=== PATIENT | female | born 1955 | race Caucasian/White ===

== ENCOUNTER → 2016-08-26 | Outpatient (CLI) | payer BC, OTHER ==
[~2016-08-26] VITALS: Ht 162.6 cm; Wt 87.0 kg
[~2016-08-26] MED LIST: AMIT10TA PO; DEXI60CA PO; ELAV25TA PO; LEVO88TA24 PO; LIDOCAINE 2% INJ 100 MG/5 ML SDV (FOR ANES.) As Ordered ONE; LISI10TA4 PO; NS 1,000 ML IV SCH; PROPOFOL 200 MG/20 ML VIAL As Ordered ONE; PROT1TAB2 PO; RANI150T PO; REST0.05 OP
--- NOTE | 2016-08-26 09:05 | ROOR ---
Patient Name: Mira Conner Procedure Date: 08/26/2016 8:43 AM Date of : 1955 Age: 61 Room: [facility] Gender: Female Note Status: Finalized Procedure: Upper GI endoscopy Indications: Heartburn, Failure to respond to medical treatment Providers: Alli NOVAK MD Referring MD: Cody Pierre MD Requesting Provider: Medicines: Monitored Anesthesia Care Complications: No immediate complications. Procedure: Pre-Anesthesia Assessment: - The heart rate, respiratory rate, oxygen saturations, blood pressure, adequacy of pulmonary ventilation, and response to care were monitored throughout the procedure. The Endoscope was introduced through the mouth, and advanced to the jejunum. The upper GI endoscopy was accomplished without difficulty. The patient tolerated the procedure well. Findings: The examined esophagus was normal. 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 The gastrojejunal anastomosis was characterized by healthy appearing mucosa. This was traversed. The exam of the stomach was otherwise normal. The examined jejunum was normal. Impression: - Normal esophagus. - Juliocesar-en-Y gastrojejunostomy with gastrojejunal anastomosis characterized by healthy appearing mucosa. - Normal examined jejunum. - No specimens collected. Recommendation: - Follow an antireflux regimen. - Return to my office as previously scheduled. Alli Novak MD Alli NOVAK MD 08/26/2016 9:05:21 AM This report has been signed electronically. Number of Addenda: 0 Note Initiated On: 08/26/2016 8:43 AM Estimated Blood Loss: Estimated blood loss: none.
[2016-08-26 09:25] VITALS: BP 172/92
== END | disposition home or self-care (01) ==
LOC: M OPP 07:46
PROVIDERS: ATTEND Internal Medicine Gastroenterology
DX: R12 Heartburn (principal); Z98.0 Intestinal bypass and anastomosis status; I10 Essential (primary) hypertension; G47.30 Sleep apnea, unspecified; E03.9 Hypothyroidism, unspecified; Z88.5 Allergy status to narcotic agent; Z88.8 Allergy status to other drugs, medicaments and biological substances; Z79.899 Other long term (current) drug therapy

== ENCOUNTER → 2017-03-02 | Outpatient (CLI) | payer BC, OTHER ==
[~2017-03-02] MED LIST changes: -DEXI60CA PO; +DEXI60CA2 PO; -LIDOCAINE 2% INJ 100 MG/5 ML SDV (FOR ANES.) As Ordered ONE; -NS 1,000 ML IV SCH; -PROPOFOL 200 MG/20 ML VIAL As Ordered ONE
[2017-03-02 10:28] LABS: ALBUMIN 3.6 GM/DL (3.2-5.2); ALKALINE PHOSPHATASE 103 U/L (45-117); ALT/SGPT 27 U/L (12-78); ANION GAP 7 MEQ/L (8-16); AST/SGOT 20 U/L (15-37); BILIRUBIN,TOTAL 0.6 MG/DL (0.2-1.0); BLOOD UREA NITROGEN 14 MG/DL (7-18); CALCIUM LEVEL 8.7 MG/DL (8.8-10.2); CARBON DIOXIDE LEVEL 28 MEQ/L (21-32); CHLORIDE LEVEL 107 MEQ/L (98-107); CREATININE FOR GFR 0.68 MG/DL (0.55-1.02); GLOMERULAR FILTRATION RATE > 60.0 (>45); GLUCOSE, FASTING 89 MG/DL (80-110); POTASSIUM SERUM 4.6 MEQ/L (3.5-5.1); SODIUM LEVEL 142 MEQ/L (136-145); TOTAL PROTEIN 6.6 GM/DL (6.4-8.2)
== END ==
LOC: M WUC 08:06
PROVIDERS: ATTEND Nurse Practitioner Family
DX: I10 Essential (primary) hypertension (principal); E03.9 Hypothyroidism, unspecified

== ENCOUNTER → 2017-04-12 | Outpatient (CLI) | payer BC, OTHER ==
--- NOTE | 2017-04-14 09:05 | DEXA ---
AP SPINE L1 - L4 1.051 -1.2 0.2 LT FEMUR TOTAL 0.815 -1.5 -0.5 RT FEMUR TOTAL 0.796 -1.7 -0.6 TOTAL BODY TOTAL OTHER DUAL FEMUR FRAX* ASSESSMENT Risk factors: Not performed. 10 year probability of fracture Major osteoporotic fracture % Hip fracture % COMMENTS: There is low bone density of the spine and hips. The density of the spine is increased 2.6% since 03/05/2014. The density of the left hip has increased 5.7% since 03/05/2014. The density of the right hip has increased 8.4% since 03/05/2014. FOLLOW-UP: Recommendation for the next bone density exam: 2 years. ADRIA
== END ==
LOC: M WHC 15:23
DX: M85.80 Other specified disorders of bone density and structure, unspecified site (principal)

== ENCOUNTER → 2017-05-26 | Outpatient (CLI) | payer BC, OTHER ==
[2017-05-26 15:38] LABS: FREE T4 1.26 NG/DL (0.76-1.46)
== END ==
LOC: M WUC 11:51
PROVIDERS: ATTEND Nurse Practitioner Family
DX: E61.1 Iron deficiency (principal); E03.9 Hypothyroidism, unspecified

== ENCOUNTER → 2017-06-23 | Outpatient (CLI) | payer BC, OTHER ==
--- NOTE | 2017-06-23 15:25 | REPMRS ---
Patient History The patient states she had a clinical breast exam in 01/2017. Patient is postmenopausal and had first child at age 33. Family history of prostate cancer in father at age 50 or over, breast cancer in mother at age 84, colorectal cancer in mother at age 90, breast cancer in maternal grandmother at age 50 or over, and prostate cancer in brother at age 50 or over. Taking unspecified hormones for 2 years. Digital Woman Screen Mammo: June 23, 2017 - Exam #: [id number] Bilateral CC and MLO view(s) were taken. Technologist: Aurelia Tuttle Technologist Prior study comparison: June 22, 2016, digital woman screen mammo performed at [facility]. May 20, 2015, digital woman screen mammo performed at [facility]. March 05, 2014, digital woman screen mammo performed at [facility]. FINDINGS: There are scattered fibroglandular densities. There has been no change in the appearance of the mammogram from the prior studies. There is a mild amount of scattered fibroglandular density which is fairly symmetric. There is no interval development of dominant mass, architectural distortion, or clustered microcalcification suggestive of malignancy. ASSESSMENT: BI-RADS/ACR category 1 mammogram. Negative. Recommendation Breast MRI of both breasts in 6 months. Routine screening mammogram in 1 year (for women over age 40). This patient's Lifetime Breast Cancer RIsk is estimated at 20.3 %. Annual screening Breast MRI scanniing is recommended for patient's whose lifetime risk assessment is over 20%. This mammogram was interpreted with the aid of an FDA-approved computer-aided dectection system. Electronically Signed By: Vitaly Marrero MD 06/23/17 [id number]
== END ==
LOC: M WHC 12:56
PROVIDERS: ATTEND Nurse Practitioner Adult Health
DX: Z12.31 Encounter for screening mammogram for malignant neoplasm of breast (principal); Z78.0 Asymptomatic menopausal state; Z80.0 Family history of malignant neoplasm of digestive organs; Z80.3 Family history of malignant neoplasm of breast; Z79.891 Long term (current) use of opiate analgesic

== ENCOUNTER → 2017-12-28 | Outpatient (CLI) | payer BC, OTHER ==
[~2017-12-28] MED LIST changes: -AMIT10TA PO; -DEXI60CA2 PO; -ELAV25TA PO; -LEVO88TA24 PO; -LISI10TA4 PO; +PROHANCE 279.3MG/ML 15ML VIAL (A9576) As Ordered; +PROHANCE 279.3MG/ML 5ML VIAL (A9576) As Ordered; -PROT1TAB2 PO; -RANI150T PO; -REST0.05 OP
== END ==
LOC: M RAD 09:42
DX: Z15.01 Genetic susceptibility to malignant neoplasm of breast (principal)
CPT/HCPCS: A9576

== ENCOUNTER → 2018-04-22 | Outpatient (CLI) | payer BC, OTHER ==
[2018-04-22 17:54] LABS: BASO # 0.1 10^3/uL (0.0-0.2); EOS # 0.1 10^3/uL (0.0-0.50); EOS % 2.9 % (0.0-3.0); HEMATOCRIT 43.7 % (36.0-47.0); HEMOGLOBIN 14.4 g/dl (12.0-15.5); IMMATURE GRANULOCYTE % 0.8 % (0-3.0); LYMPH % 21.4 % (24.0-44.0); MEAN CORPUSCULAR HEMOGLOBIN 31.9 pg (27.0-33.0); MEAN CORPUSCULAR VOLUME 96.7 fl (80.0-96.0); MONO # 0.4 10^3/uL (0.0-0.8); MONO % 8.6 % (0.0-5.0); NEUTROPHILS # 3.1 10^3/uL (1.8-7.7); NEUTROPHILS % 65.3 % (36.0-66.0); PLATELET COUNT, AUTOMATED 202 10^3/uL (150-450); RED BLOOD COUNT 4.52 10^6/uL (4.00-5.40); WHITE BLOOD COUNT 4.8 10^3/uL (4.0-10.0)
[2018-04-22 17:56] LABS: ALBUMIN 3.8 GM/DL (3.2-5.2); ALBUMIN/GLOBULIN RATIO 1.23 (1.00-1.93); ALKALINE PHOSPHATASE 87 U/L (45-117); ALT/SGPT 29 U/L (12-78); ANION GAP 8 MEQ/L (8-16); AST/SGOT 17 U/L (7-37); BILIRUBIN,TOTAL 0.5 MG/DL (0.2-1.0); BLOOD UREA NITROGEN 16 MG/DL (7-18); CALCIUM LEVEL 8.9 MG/DL (8.8-10.2); CARBON DIOXIDE LEVEL 27 MEQ/L (21-32); CHLORIDE LEVEL 111 MEQ/L (98-107); CHOLESTEROL LEVEL 204 MG/DL (<200); CHOLESTEROL RISK RATIO 2.241 (<5); CREATININE FOR GFR 0.81 MG/DL (0.55-1.30); FREE T3 2.4 PG/ML (2.2-4.0); FREE T4 0.91 NG/DL (0.76-1.46); GLOMERULAR FILTRATION RATE > 60.0 (>45); GLUCOSE, FASTING 96 MG/DL (70-100); HDL CHOLESTEROL 91 MG/DL (>40); LDL CHOLESTEROL 95.4 MG/DL (<100); NON-HDL-C 113 MG/DL; POTASSIUM SERUM 4.3 MEQ/L (3.5-5.1); SODIUM LEVEL 146 MEQ/L (136-145); TOTAL PROTEIN 6.9 GM/DL (6.4-8.2); TRIGLYCERIDES LEVEL 88 MG/DL (<150)
[2018-04-23 09:12] LABS: TOTAL 25(OH) VITAMIN D 60.8 NG/ML (30.0-100.0)
== END ==
LOC: M WUC 09:13
DX: E78.5 Hyperlipidemia, unspecified (principal)

== ENCOUNTER 2018-06-14 09:12 | Emergency (ER) | payer BC, OTHER | END 2018-06-14 10:22 | disposition home or self-care (01) | LOC: M ED 09:12 | DX: S90.32XA Contusion of left foot, initial encounter (principal); W10.9XXA Fall (on) (from) unspecified stairs and steps, initial encounter; Y92.019 Unspecified place in single-family (private) house as the place of occurrence of the external cause | CPT/HCPCS: 73630 ==

== ENCOUNTER → 2018-08-23 | Outpatient (CLI) | payer BC, OTHER ==
[~2018-08-23] MED LIST changes: +AMIT10TA PO; +DEXI60CA2; +DEXI60CA2 PO; +ELAV25TA PO; +LEVO88TA24 PO; +LISI10TA4 PO; -PROHANCE 279.3MG/ML 15ML VIAL (A9576) As Ordered; -PROHANCE 279.3MG/ML 5ML VIAL (A9576) As Ordered; +PROT1TAB2 PO; +RANI150T PO; +REST0.05 OP
--- NOTE | 2018-08-23 13:33 | REPMRS ---
Patient History The patient states she had a clinical breast exam in 02/28 Patient is postmenopausal and had first child at age 33. Family history of breast cancer at age 84 and colorectal cancer at age 90 in mother, breast cancer at age 50 or over in maternal grandmother, prostate cancer at age 50 or over in father, prostate cancer at age 50 or over in brother, breast cancer at age 90 in maternal aunt. 2 benign excisional biopsies of the left breast, 1975. Taking unspecified hormones for 3 years. Digital Woman Screen Mammo: August 23, 2018 - Exam #: [id number] Bilateral CC and MLO view(s) were taken. Technologist: Diane Gruber, Technologist Prior study comparison: June 23, 2017, digital woman screen mammo performed at [facility]. June 22, 2016, digital woman screen mammo performed at [facility]. FINDINGS: There are scattered fibroglandular densities. There has been no change in the appearance of the mammogram from the prior studies. There is a mild amount of scattered fibroglandular density which is fairly symmetric. There is no interval development of dominant mass, architectural distortion, or clustered microcalcification suggestive of malignancy. 3-D tomosynthesis shows no additional findings. Assessment: BI-RADS/ACR category 1 mammogram. Negative. Recommendation Breast MRI of both breasts in 6 months. Routine screening mammogram of both breasts in 1 year (for women over age 40). This patient's Lifetime Breast Cancer RIsk is estimated at 20.6 %. Annual screening Breast MRI scanniing is recommended for patient's whose lifetime risk assessment is over 20%. This mammogram was interpreted with the aid of an FDA-approved computer-aided dectection system. Electronically Signed By: Vitaly Marrero MD 08/23/18 [id number]
== END ==
LOC: M WHC 12:45
PROVIDERS: ATTEND Nurse Practitioner Adult Health
DX: Z12.31 Encounter for screening mammogram for malignant neoplasm of breast (principal); Z78.0 Asymptomatic menopausal state; Z92.29 Personal history of other drug therapy; Z80.3 Family history of malignant neoplasm of breast; Z80.0 Family history of malignant neoplasm of digestive organs; Z86.018 Personal history of other benign neoplasm

== ENCOUNTER → 2019-03-01 | Outpatient (CLI) | payer BC, OTHER ==
[~2019-03-01] MED LIST changes: +PROHANCE 279.3MG/ML 15ML VIAL (A9576) As Ordered ONE; +PROHANCE 279.3MG/ML 5ML VIAL (A9576) As Ordered ONE
--- NOTE | 2019-03-01 11:05 | REP ---
Bilateral breast MRI study without and with IV gadolinium: History: Genetic susceptibility to malignancy. Comparison mammography August 23, 2018. Elevated lifetime breast cancer risk assessment, 20.6%. Technique: 3 Ritika MRI imaging was performed with a dedicated breast coil. Axial, coronal, and sagittal T1 and T2-weighted scans were obtained with and without fat saturation in the usual fashion. The study includes dynamically acquired post gadolinium enhanced imaging subtraction imaging. Maximal intensity projection and multiplanar re-formation imaging is included as well. The study was interpreted with the aid of [address], an FDA approved computer-aided detection (CAD) software program, on a dedicated breast MRI work station. The gadolinium enhancement dose is 17 mL of intravenous ProHance. Findings: There are scattered fibroglandular elements noted bilaterally in a roughly symmetric pattern corresponding with the mammographic breast parenchymal pattern. There is no evidence of axillary lymphadenopathy. No significant breast cystic change is appreciated. High-resolution pre and postcontrast T1 and T2-weighted scans show no suspicious morphologic abnormality in either breast. Dynamically acquired sequential post contrast images show mild parenchymal background enhancement pattern. No suspicious focus of enhancement and washout is seen in either breast to suggest malignancy. Subtraction images are unremarkable. Impression: BI-RADS category 1 negative breast MRI findings. Repeat screening breast MRI study recommended 1 year. Electronically Signed by Stanford Marrero MD 03/01/2019 11:20 A
== END ==
LOC: M RAD 07:57
PROVIDERS: ATTEND Obstetrics & Gynecology
DX: Z15.01 Genetic susceptibility to malignant neoplasm of breast (principal)
CPT/HCPCS: A9576; C8908

== ENCOUNTER → 2019-08-06 | Outpatient (CLI) | payer OTHER, BC ==
[~2019-08-06] MED LIST changes: -PROHANCE 279.3MG/ML 15ML VIAL (A9576) As Ordered ONE; -PROHANCE 279.3MG/ML 5ML VIAL (A9576) As Ordered ONE
[2019-08-06 13:23] LABS: HEMOGLOBIN 14.8 g/dl (12.0-15.5); MEAN CORPUSCULAR HEMOGLOBIN 30.6 pg (27.0-33.0); MEAN CORPUSCULAR HGB CONC 32.9 g/dl (32.0-36.5); PLATELET COUNT, AUTOMATED 234 10^3/uL (150-450); RED BLOOD COUNT 4.84 10^6/uL (4.00-5.40); WHITE BLOOD COUNT 4.8 10^3/uL (4.0-10.0)
[2019-08-06 13:36] LABS: ALBUMIN 3.7 GM/DL (3.2-5.2); ALT/SGPT 23 U/L (12-78); BILIRUBIN,TOTAL 0.7 MG/DL (0.2-1.0); BLOOD UREA NITROGEN 14 MG/DL (7-18); CARBON DIOXIDE LEVEL 28 MEQ/L (21-32); CHLORIDE LEVEL 108 MEQ/L (98-107); CHOLESTEROL LEVEL 213 MG/DL (<200); CHOLESTEROL RISK RATIO 2.629 (<5); CREATININE FOR GFR 0.83 MG/DL (0.55-1.30); FREE T3 2.7 PG/ML (2.2-4.0); FREE T4 1.09 NG/DL (0.76-1.46); GLOMERULAR FILTRATION RATE > 60.0 (>45); GLUCOSE, FASTING 93 MG/DL (70-100); HDL CHOLESTEROL 81 MG/DL (>40); LDL CHOLESTEROL 109 MG/DL (<100); NON-HDL-C 132 MG/DL; POTASSIUM SERUM 4.3 MEQ/L (3.5-5.1); SODIUM LEVEL 142 MEQ/L (136-145); TOTAL PROTEIN 6.9 GM/DL (6.4-8.2); TRIGLYCERIDES LEVEL 115 MG/DL (<150)
== END ==
LOC: M WUC 09:24
PROVIDERS: ATTEND Family Medicine
DX: I10 Essential (primary) hypertension (principal); E03.9 Hypothyroidism, unspecified; E55.9 Vitamin D deficiency, unspecified

== ENCOUNTER → 2019-10-17 | Outpatient (CLI) | payer BC, OTHER ==
--- NOTE | 2019-10-17 09:40 | REPMRS ---
Patient History The patient states she had a clinical breast exam in July 2019. Family history of breast cancer at age 84 and colorectal cancer at age 90 in mother, breast cancer at age 50 or over in maternal grandmother, prostate cancer at age 50 or over in father, prostate cancer at age 50 or over in brother, breast cancer at age 90 in maternal aunt. 2 benign excisional biopsies of the left breast, 1975. Taking unspecified hormones for 3 years. Digital Woman Screen Mammo: October 17, 2019 - Exam #: [id number] Bilateral CC and MLO view(s) were taken. Technologist: Rhoda Ross, Technologist Prior study comparison: August 23, 2018, bilateral digital woman screen mammo performed at [facility]. June 23, 2017, digital woman screen mammo performed at [facility]. June 22, 2016, digital woman screen mammo performed at [facility]. FINDINGS: There are scattered fibroglandular densities. There has been no change in the appearance of the mammogram from the prior studies. There is a mild amount of scattered fibroglandular density which is fairly symmetric. There is no interval development of dominant mass, architectural distortion, or grouped microcalcification suggestive of malignancy. 3-D tomosynthesis shows no additional findings. Assessment: BI-RADS/ACR category 1 mammogram. Negative Mammogram. Recommendation Routine screening mammogram of both breasts in 1 year (for women over age 40). This patient's Lifetime Breast Cancer Risk is estimated at 19.8 %. This mammogram was interpreted with the aid of an FDA-approved computer-aided dectection system. Electronically Signed By: Vitaly Marrero MD 10/17/19 0999
== END ==
LOC: M WHC 07:57
PROVIDERS: ATTEND Obstetrics & Gynecology
DX: Z12.31 Encounter for screening mammogram for malignant neoplasm of breast (principal); Z80.3 Family history of malignant neoplasm of breast

== ENCOUNTER → 2020-09-03 | Outpatient (CLI) | payer BC, OTHER ==
[~2020-09-03] MED LIST changes: +BUPR75TA5 PO; +HYDR12CA PO; +LEVO88TA3 PO; +LISI10TA15 PO; +LISI10TA22 PO; -LISI10TA4 PO; +RABE1TAB4 PO; +SUCR1TAB56 PO; +TAGA200T3 PO
== END ==
LOC: M LABSMTC 10:07
PROVIDERS: ATTEND Anesthesiology
DX: Z01.812 Encounter for preprocedural laboratory examination (principal); Z20.822 Contact with and (suspected) exposure to COVID-19

== ENCOUNTER 2020-09-08 11:47 | Day surgery (SDC) | payer BC, OTHER ==
[~2020-09-08] VITALS: Ht 162.6 cm; Wt 71.2 kg
[~2020-09-08 11:47] MED LIST changes: +LIDOCAINE 2% 100MG/5ML SDV (FOR ANES.) As Ordered ONE; -LISI10TA22 PO; +LISI10TA4 PO; +NS 1,000 ML IV ONE; +RABE1TAB PO; -RABE1TAB4 PO; +propofoL 200 MG/20 ML VIAL As Ordered ONE
[2020-09-08] MEDS ORDERED: fentaNYL 100 MCG/2 ML INJECTION (J3010) As Ordered ONE (13:14)
--- NOTE | 2020-09-08 13:57 | ROOR ---
Patient Name: Mira Conner Procedure Date: 09/08/2020 1:36 PM Date of : 1955 Age: 65 Room: [facility] Gender: Female Note Status: Finalized Procedure: Upper GI endoscopy Indications: Heartburn, Suspected reflux esophagitis, Failure to respond to medical treatment Providers: Alli NOVAK MD Referring MD: Cody Pierre MD Requesting Provider: Medicines: Monitored Anesthesia Care Complications: No immediate complications. Procedure: Pre-Anesthesia Assessment: - The heart rate, respiratory rate, oxygen saturations, blood pressure, adequacy of pulmonary ventilation, and response to care were monitored throughout the procedure. The Endoscope was introduced through the mouth, and advanced to the jejunum. The upper GI endoscopy was accomplished without difficulty. The patient tolerated the procedure well. Findings: The examined esophagus was normal. 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 The gastrojejunal anastomosis was characterized by healthy appearing mucosa. Small Hiatal Hernia. The exam of the stomach was otherwise normal. The examined jejunum was normal. Impression: - Normal esophagus. - Small Hiatal Hernia. - Juliocesar-en-Y gastrojejunostomy with gastrojejunal anastomosis characterized by healthy appearing mucosa. - Normal examined jejunum. - No specimens collected. Recommendation: - Continue present medications. - Plus try: Use Gaviscon (OTC) 1-2 tabs po q 4-6 hrs as needed for breakthrough reflux symptoms. Procedure Code(s): --- Professional --- 79905, Esophagogastroduodenoscopy, flexible, transoral; diagnostic, including collection of specimen(s) by brushing or washing, when performed (separate procedure) Diagnosis Code(s): --- Professional --- R12, Heartburn Z98.0, Intestinal bypass and anastomosis status CPT copyright 2019 [employer]. All rights reserved. The codes documented in this report are preliminary and upon stable cleaner review may be revised to meet current compliance requirements. Alli Novak MD Alli NOVAK MD 09/08/2020 1:56:13 PM Electronically signed by Alli NOVAK MD Number of Addenda: 0 Note Initiated On: 09/08/2020 1:36 PM Estimated Blood Loss: Estimated blood loss: none.
[2020-09-08 14:15] VITALS: BP 121/77
== END 2020-09-08 14:19 | disposition home or self-care (01) ==
LOC: M OPP 11:47
PROVIDERS: ATTEND Internal Medicine Gastroenterology
DX: R12 Heartburn (principal); K44.9 Diaphragmatic hernia without obstruction or gangrene; Z98.0 Intestinal bypass and anastomosis status; I10 Essential (primary) hypertension; E03.9 Hypothyroidism, unspecified; F41.9 Anxiety disorder, unspecified; G47.30 Sleep apnea, unspecified; K21.9 Gastro-esophageal reflux disease without esophagitis; N30.10 Interstitial cystitis (chronic) without hematuria; Z98.84 Bariatric surgery status; Z88.1 Allergy status to other antibiotic agents; Z88.8 Allergy status to other drugs, medicaments and biological substances; Z91.040 Latex allergy status; Z91.09 Other allergy status, other than to drugs and biological substances; Z79.899 Other long term (current) drug therapy; Z80.0 Family history of malignant neoplasm of digestive organs; Z90.3 Acquired absence of stomach [part of]; Z80.42 Family history of malignant neoplasm of prostate; Z82.49 Family history of ischemic heart disease and other diseases of the circulatory system
CPT/HCPCS: 43235; J3010

== ENCOUNTER → 2020-10-19 | Outpatient (CLI) | payer BC ==
[~2020-10-19] MED LIST changes: -AMIT10TA PO; +AMIT10TA7 PO; -LIDOCAINE 2% 100MG/5ML SDV (FOR ANES.) As Ordered ONE; +LISI10TA22 PO; -LISI10TA4 PO; -NS 1,000 ML IV ONE; -RABE1TAB PO; +RABE1TAB4 PO; -propofoL 200 MG/20 ML VIAL As Ordered ONE
--- NOTE | 2020-10-19 09:54 | REPMRS ---
Patient History The patient states she had a clinical breast exam in October 2020. Patient is postmenopausal and had first child at age 33. Family history of breast cancer at age 84 and colorectal cancer at age 90 in mother, breast cancer at age 50 or over in maternal grandmother, prostate cancer at age 50 or over in father, prostate cancer at age 50 or over in brother, breast cancer at age 90 in maternal aunt. 2 benign excisional biopsies of the left breast, 1975. Taking estrogen for 3 years. Digital Woman Screen Mammo: October 19, 2020 - Exam #: [id number] Bilateral CC and MLO view(s) were taken. Technologist: Brooke Medina, Technologist Prior study comparison: October 17, 2019, bilateral digital woman screen mammo performed at [facility]. August 23, 2018, bilateral digital woman screen mammo performed at [facility]. June 23, 2017, digital woman screen mammo performed at [facility]. FINDINGS: There are scattered fibroglandular densities. The Volpara volumetric breast density category is:B. There has been no change in the appearance of the mammogram from the prior studies. There is a mild amount of scattered fibroglandular density which is fairly symmetric. There is no interval development of dominant mass, architectural distortion, or grouped microcalcification suggestive of malignancy. 3-D tomosynthesis shows no additional findings. Assessment: BI-RADS/ACR category 1 mammogram. Negative Mammogram. Recommendation Routine screening mammogram of both breasts in 1 year (for women over age 40). This patient's [facility] Lifetime Breast Cancer Risk is estimated at 19.9 %. This mammogram was interpreted with the aid of an FDA-approved computer-aided dectection system. Electronically Signed By: Vitaly Marrero MD 10/19/20 0953
== END ==
LOC: M WHC 07:44
PROVIDERS: ATTEND Obstetrics & Gynecology
DX: Z12.31 Encounter for screening mammogram for malignant neoplasm of breast (principal); Z78.0 Asymptomatic menopausal state; Z80.3 Family history of malignant neoplasm of breast; Z80.0 Family history of malignant neoplasm of digestive organs; Z86.018 Personal history of other benign neoplasm; Z92.23 Personal history of estrogen therapy

== ENCOUNTER → 2021-04-07 | Outpatient (REF) | payer OTHER, BC | LOC: M LAB REF 14:28 | PROVIDERS: ATTEND Physician Assistant | DX: D49.2 Neoplasm of unspecified behavior of bone, soft tissue, and skin (principal) ==

== ENCOUNTER 2021-07-23 23:15 | Emergency (ER) | payer BC, OTHER ==
[~2021-07-23] VITALS: Ht 162.6 cm; Wt 76.4 kg
[~2021-07-23 23:15] MED LIST changes: -LISI10TA15 PO; +LISI10TA24 PO
[2021-07-23] MEDS ORDERED: FAMO20TA PO (23:22)
[2021-07-24] MEDS ORDERED: ACETAMINOPHEN 500 MG TAB PO ONE (06:30)
[2021-07-24] MEDS ORDERED: traMADol 50 MG TAB PO ONE (06:30)
[2021-07-24] MEDS ORDERED: ULTR50TA8 PO (06:38)
[2021-07-24 06:50] VITALS: BP 122/63
== END 2021-07-24 06:50 | disposition home or self-care (01) ==
LOC: M ED 23:15
DX: S52.502A Unspecified fracture of the lower end of left radius, initial encounter for closed fracture (principal); S52.615A Nondisplaced fracture of left ulna styloid process, initial encounter for closed fracture; W01.0XXA Fall on same level from slipping, tripping and stumbling without subsequent striking against object, initial encounter; Y92.009 Unspecified place in unspecified non-institutional (private) residence as the place of occurrence of the external cause; Y93.9 Activity, unspecified; Y99.9 Unspecified external cause status; I10 Essential (primary) hypertension; E78.5 Hyperlipidemia, unspecified; E03.9 Hypothyroidism, unspecified; G47.33 Obstructive sleep apnea (adult) (pediatric); K21.9 Gastro-esophageal reflux disease without esophagitis; F32.A Depression, unspecified; Z88.8 Allergy status to other drugs, medicaments and biological substances; Z91.040 Latex allergy status; Z79.890 Hormone replacement therapy; Z79.899 Other long term (current) drug therapy

== ENCOUNTER → 2021-11-15 | Outpatient (CLI) | payer BC, OTHER ==
[~2021-11-15] MED LIST changes: +E-Z-GAS II EFFERVESCENT PACKET (SODIUM BICARB./CITRIC ACID/SIMETHICONE) As Ordered ONE; +E-Z-HD 98% w/w 340GM SUSP BTL As Ordered ONE; +E-Z-PAQUE 96% w/w SUSP 176GM BTL As Ordered ONE; +FAMO20TA PO; +ULTR50TA8 PO
== END ==
LOC: M RAD 08:20
DX: K21.9 Gastro-esophageal reflux disease without esophagitis (principal)

== ENCOUNTER → 2021-11-29 | Outpatient (CLI) | payer BC, OTHER ==
[~2021-11-29] MED LIST changes: -E-Z-GAS II EFFERVESCENT PACKET (SODIUM BICARB./CITRIC ACID/SIMETHICONE) As Ordered ONE; -E-Z-HD 98% w/w 340GM SUSP BTL As Ordered ONE; -E-Z-PAQUE 96% w/w SUSP 176GM BTL As Ordered ONE
== END ==
LOC: M WHC 10:48
PROVIDERS: ATTEND Obstetrics & Gynecology
DX: Z12.31 Encounter for screening mammogram for malignant neoplasm of breast (principal)

== ENCOUNTER → 2021-12-08 | Outpatient (CLI) | payer BC, OTHER | LOC: M WHC 07:36 | PROVIDERS: ATTEND Obstetrics & Gynecology | DX: Z12.31 Encounter for screening mammogram for malignant neoplasm of breast (principal) ==

== ENCOUNTER → 2021-12-25 | Outpatient (CLI) | payer BC, OTHER | LOC: M LABSMTC 09:07 | PROVIDERS: ATTEND Surgery | DX: Z01.812 Encounter for preprocedural laboratory examination (principal); Z20.822 Contact with and (suspected) exposure to COVID-19 ==

== ENCOUNTER → 2022-01-16 | Outpatient (CLI) | payer BC, OTHER | LOC: M LABSMTC 09:19 | PROVIDERS: ATTEND Surgery | DX: Z11.52 Encounter for screening for COVID-19 (principal) ==

== ENCOUNTER → 2022-01-28 | Outpatient (CLI) | payer BC, OTHER | LOC: M PLALAB 09:34 | PROVIDERS: ATTEND Surgery | DX: Z01.89 Encounter for other specified special examinations (principal) ==

== ENCOUNTER → 2022-06-28 | Outpatient (CLI) | payer BC, OTHER ==
[~2022-06-28] MED LIST changes: +DICY10CA13 PO; +DULO1CAP4 PO; +WELLTAB38 PO
== END ==
LOC: M LABSMTC 09:22
PROVIDERS: ATTEND Anesthesiology
DX: Z01.812 Encounter for preprocedural laboratory examination (principal); Z11.52 Encounter for screening for COVID-19

== ENCOUNTER → 2022-06-29 | Outpatient (REF) | payer BC, OTHER | LOC: M LAB REF 11:43 | PROVIDERS: ATTEND Physician Assistant Medical | DX: R19.4 Change in bowel habit (principal) ==

== ENCOUNTER 2022-06-30 10:08 | Day surgery (SDC) | payer BC, OTHER ==
[~2022-06-30] VITALS: Ht 162.6 cm; Wt 77.7 kg
[~2022-06-30 10:08] MED LIST changes: +NS 1,000 ML IV ONE
[2022-06-30] MEDS ORDERED: propofoL 200 MG/20 ML VIAL As Ordered ONE (12:42)
[2022-06-30 13:35] VITALS: BP 120/69
== END 2022-06-30 13:41 | disposition home or self-care (01) ==
LOC: M OPP 10:08
PROVIDERS: ATTEND Internal Medicine Gastroenterology
DX: K64.8 Other hemorrhoids (principal); Q43.9 Congenital malformation of intestine, unspecified; R19.4 Change in bowel habit; Z87.891 Personal history of nicotine dependence; E03.9 Hypothyroidism, unspecified; I10 Essential (primary) hypertension; G47.30 Sleep apnea, unspecified; M19.90 Unspecified osteoarthritis, unspecified site; F32.9 Major depressive disorder, single episode, unspecified; F41.9 Anxiety disorder, unspecified; Z79.899 Other long term (current) drug therapy; Z88.1 Allergy status to other antibiotic agents; Z88.5 Allergy status to narcotic agent; Z91.048 Other nonmedicinal substance allergy status; Z87.448 Personal history of other diseases of urinary system; Z90.49 Acquired absence of other specified parts of digestive tract; Z98.84 Bariatric surgery status; Z99.89 Dependence on other enabling machines and devices

== ENCOUNTER → 2022-08-24 | Outpatient (CLI) | payer BC, OTHER ==
[~2022-08-24] MED LIST changes: -NS 1,000 ML IV ONE
== END ==
LOC: M WUC 09:25
PROVIDERS: ATTEND Family Medicine
DX: M54.2 Cervicalgia (principal)

== ENCOUNTER → 2022-08-31 | Outpatient (CLI) | payer BC, OTHER ==
[2022-08-31 11:03] LABS: BLOOD UREA NITROGEN 21 MG/DL (9-23); CREATININE FOR GFR 0.75 MG/DL (0.55-1.30); GLOMERULAR FILTRATION RATE > 60.0 (>45)
== END ==
LOC: M PLALAB 08:18
PROVIDERS: ATTEND Physician Assistant Medical
DX: R10.84 Generalized abdominal pain (principal)

== ENCOUNTER → 2022-09-02 | Outpatient (CLI) | payer BC, OTHER ==
[~2022-09-02] MED LIST changes: +GASTROGRAFIN SOLUTION 30ML As Ordered ONE; +ISOVUE-370 76% 100ML VIAL As Ordered ONE
== END ==
LOC: M RAD 08:49
PROVIDERS: ATTEND Physician Assistant Medical
DX: K86.81 Exocrine pancreatic insufficiency (principal)

== ENCOUNTER 2022-11-24 14:46 | Emergency (ER) | payer BC, OTHER ==
[~2022-11-24] VITALS: Ht 162.6 cm; Wt 77.3 kg
[~2022-11-24 14:46] MED LIST changes: -GASTROGRAFIN SOLUTION 30ML As Ordered ONE; -ISOVUE-370 76% 100ML VIAL As Ordered ONE
[2022-11-24] MEDS ORDERED: LIDOCAINE 1% MDV 20ML VIAL INFIL ONE (17:15)
[2022-11-24] MEDS ORDERED: KETOROLAC 60MG 2ML VIAL IM ONE (17:35)
[2022-11-24] MEDS ORDERED: TRAM50TA2 PO (20:26)
[2022-11-24 20:32] VITALS: BP 148/78
[2022-11-24] MEDS ORDERED: KETO10TAB PO (20:35)
[2022-11-24] MEDS ORDERED: traMADol 50 MG TAB PO ONE (20:40)
== END 2022-11-24 20:56 | disposition home or self-care (01) ==
LOC: M ED 14:46
DX: S52.514A Nondisplaced fracture of right radial styloid process, initial encounter for closed fracture (principal); S52.614A Nondisplaced fracture of right ulna styloid process, initial encounter for closed fracture; S40.811A Abrasion of right upper arm, initial encounter; S80.211A Abrasion, right knee, initial encounter; S40.021A Contusion of right upper arm, initial encounter; W01.10XA Fall on same level from slipping, tripping and stumbling with subsequent striking against unspecified object, initial encounter; Y92.513 Shop (commercial) as the place of occurrence of the external cause; Y93.01 Activity, walking, marching and hiking; Y99.8 Other external cause status; I10 Essential (primary) hypertension; K21.9 Gastro-esophageal reflux disease without esophagitis; G47.33 Obstructive sleep apnea (adult) (pediatric); E78.5 Hyperlipidemia, unspecified; Z98.84 Bariatric surgery status; Z88.1 Allergy status to other antibiotic agents; Z88.8 Allergy status to other drugs, medicaments and biological substances; Z79.899 Other long term (current) drug therapy
CPT/HCPCS: 25505; 73060; 73080; 73090; 73100; 73110; 73130; 96372; 99284; J1885

== ENCOUNTER → 2022-11-25 | Outpatient (CLI) | payer BC, OTHER ==
[~2022-11-25] MED LIST changes: +KETO10TAB PO; +NAPR-885 PO; +TRAM50TA2 PO
== END ==
LOC: M RAD 15:02
PROVIDERS: ATTEND Orthopaedic Surgery Hand Surgery
DX: S32.511A Fracture of superior rim of right pubis, initial encounter for closed fracture (principal); W18.30XA Fall on same level, unspecified, initial encounter; Y92.009 Unspecified place in unspecified non-institutional (private) residence as the place of occurrence of the external cause

== ENCOUNTER 2022-11-30 08:07 | Day surgery (SDC) | payer BC, OTHER ==
[~2022-11-30] VITALS: Ht 162.6 cm; Wt 83.1 kg
[~2022-11-30 08:07] MED LIST changes: -NAPR-885 PO
[2022-11-30] MEDS ORDERED: ceFAZolin SOD 2 GM in IV 1 EA IV ONE (08:15)
[2022-11-30] MEDS ORDERED: fentaNYL 100 MCG/2 ML INJECTION IV PRN ×2 (09:00→12:40)
[2022-11-30] MEDS ORDERED: SCOPOLAMINE 1MG TRANSDERMAL PATCH TOP SCH (09:00)
[2022-11-30] MEDS ORDERED: ROPIvacaine 0.5% 30ML VIAL PN ONE (09:00)
[2022-11-30] MEDS ORDERED: LR 1,000 ML IV SCH ×2 (09:00→12:40)
[2022-11-30] MEDS: MIDAZOLAM INJ 2MG/2ML VIAL IV PRN ×2 (09:50→09:52)
[2022-11-30] MEDS ORDERED: BACITRACIN OINTMENT 30GM TUBE As Ordered ONE (10:27)
[2022-11-30] MEDS ORDERED: BUPIVACAINE HCL 0.25% 30ML VIAL As Ordered ONE (10:27)
[2022-11-30] MEDS ORDERED: LIDOCAINE 2% 100MG/5ML SDV (FOR ANES.) As Ordered ONE (11:10)
[2022-11-30] MEDS ORDERED: KETOROLAC 60MG 2ML VIAL As Ordered ONE (11:10)
[2022-11-30] MEDS ORDERED: propofoL 200 MG/20 ML VIAL As Ordered ONE (11:10)
[2022-11-30] MEDS ORDERED: SUGAMMADEX SODIUM 500 MG/5 ML VIAL (BRIDION) As Ordered ONE (11:10)
[2022-11-30] MEDS ORDERED: fentaNYL 100 MCG/2 ML INJECTION As Ordered ONE (11:10)
[2022-11-30] MEDS ORDERED: ONDANSETRON 4MG 2ML VIAL As Ordered ONE (11:10)
[2022-11-30] MEDS ORDERED: ACETAMINOPHEN 1000MG 100ML IV BAG As Ordered ONE ×2 (11:10→13:12)
[2022-11-30] MEDS ORDERED: MIDAZOLAM INJ 2MG/2ML VIAL As Ordered ONE (11:10)
[2022-11-30] MEDS ORDERED: ROCURONIUM BROMIDE 50MG/5ML VIAL As Ordered ONE (11:10)
[2022-11-30] MEDS ORDERED: METOCLOPRAMIDE INJ 10MG/2ML VIAL As Ordered ONE (11:10)
[2022-11-30] MEDS ORDERED: ePHEDrine SULFATE 25 MG/5 ML(5MG/ML) SYRINGE As Ordered ONE (11:23)
[2022-11-30] MEDS ORDERED: PHENYLephrine 500MCG 5ML (100MCG/ML) SYRINGE As Ordered ONE (11:37)
[2022-11-30] MEDS ORDERED: HYDROMORPHONE HCL 0.5 MG/ 0.5 ML SYRINGE IV PRN (12:40)
[2022-11-30] MEDS ORDERED: ONDANSETRON 4MG 2ML VIAL IV PRN (12:40)
[2022-11-30] MEDS ORDERED: METOCLOPRAMIDE INJ 10MG/2ML VIAL IV PRN (12:40)
[2022-11-30] MEDS ORDERED: oxyCODONE 5MG TAB PO PRN (12:40)
[2022-11-30] MEDS ORDERED: NAPR-885 PO (12:44)
[2022-11-30 14:10] VITALS: BP 126/74
== END 2022-11-30 14:15 | disposition home or self-care (01) ==
LOC: M SDC 08:07
PROVIDERS: ATTEND Orthopaedic Surgery Hand Surgery
DX: S52.501A Unspecified fracture of the lower end of right radius, initial encounter for closed fracture (principal); X58.XXXA Exposure to other specified factors, initial encounter; Y92.89 Other specified places as the place of occurrence of the external cause; I10 Essential (primary) hypertension; E03.9 Hypothyroidism, unspecified; K86.81 Exocrine pancreatic insufficiency; K21.9 Gastro-esophageal reflux disease without esophagitis; M19.90 Unspecified osteoarthritis, unspecified site; F41.9 Anxiety disorder, unspecified; M54.9 Dorsalgia, unspecified; Z91.048 Other nonmedicinal substance allergy status; Z88.3 Allergy status to other anti-infective agents; Z79.899 Other long term (current) drug therapy; Z79.890 Hormone replacement therapy
CPT/HCPCS: 25609; 76000; 93005; C1713; J0131; J0690; J1100; J1885; J2250; J2370; J2405; J2765; J3010

== ENCOUNTER → 2022-12-08 | Outpatient (CLI) | payer BC, OTHER ==
[~2022-12-08] MED LIST changes: +NAPR-885 PO
== END ==
LOC: M SOG 09:36
PROVIDERS: ATTEND Physician Assistant
DX: S52.541A Smith's fracture of right radius, initial encounter for closed fracture (principal); S52.571A Other intraarticular fracture of lower end of right radius, initial encounter for closed fracture; X58.XXXA Exposure to other specified factors, initial encounter; Y92.89 Other specified places as the place of occurrence of the external cause

== ENCOUNTER → 2023-01-10 | Outpatient (CLI) | payer BC, OTHER | LOC: M SOG 08:11 | PROVIDERS: ATTEND Orthopaedic Surgery Hand Surgery | DX: S52.571D Other intraarticular fracture of lower end of right radius, subsequent encounter for closed fracture with routine healing (principal); W18.30XD Fall on same level, unspecified, subsequent encounter ==

== ENCOUNTER → 2023-01-17 | Outpatient (CLI) | payer BC, OTHER | LOC: M WHC 07:41 | PROVIDERS: ATTEND Specialist | DX: Z01.419 Encounter for gynecological examination (general) (routine) without abnormal findings (principal) ==

== ENCOUNTER 2023-12-08 06:34 | Inpatient (IN) | payer MEDICARE, BC ==
[~2023-12-08] VITALS: Ht 162.6 cm; Wt 90.2 kg
[~2023-12-08 06:34] MED LIST changes: +DICY-61 PO; -DICY10CA13 PO
[2023-12-08] MEDS ORDERED: VENL37.598 PO (06:50)
[2023-12-08 07:59] LABS: VENOUS BASE EXCESS -3.2 (-2.0-2.0); VENOUS O2 SATURATION 81.5 % (60.0-80.0); VENOUS PARTIAL PRESSURE CO2 40.1 mmHg (38.0-50.0); VENOUS PARTIAL PRESSURE O2 45.9 mmHg (30.0-50.0); VENOUS PH 7.358 UNITS (7.330-7.430); VENOUS STANDARD HCO3 21.5 MMOL/L; VENOUS TOTAL CO2 23.3 MMOL/L (24.0-28.0)
[2023-12-08 08:04] LABS: BASO % 0.4 % (0.0-1.0); EOS # 0.1 10^3/uL (0.0-0.5); HEMATOCRIT 36.7 % (36.0-47.0); HEMOGLOBIN 12.3 g/dl (12.0-15.5); LYMPH # 1.3 10^3/uL (1.5-5.0); LYMPH % 12.2 % (24.0-44.0); MEAN CORPUSCULAR HEMOGLOBIN 29.5 pg (27.0-33.0); MEAN CORPUSCULAR HGB CONC 33.5 g/dl (32.0-36.5); MONO # 0.6 10^3/uL (0.0-0.8); MONO % 5.5 % (2.0-8.0); NEUTROPHILS # 8.7 10^3/uL (1.5-8.5); NEUTROPHILS % 80.2 % (36.0-66.0); PLATELET COUNT, AUTOMATED 233 10^3/uL (150-450); RED BLOOD COUNT 4.17 10^6/uL (4.00-5.40); WHITE BLOOD COUNT 10.8 10^3/uL (4.0-10.0)
[2023-12-08] MEDS: PANTOPRAZOLE 40MG VIAL IV ONE (08:05)
[2023-12-08 08:15] LABS: INR 1.07; PARTIAL THROMBOPLASTIN TIME 28.1 SECONDS (24.8-34.2); PROTHROMBIN TIME 13.6 SECONDS (12.5-14.5)
[2023-12-08 08:30] LABS: LIPASE 39 U/L (12-53)
[2023-12-08 08:32] LABS: ALBUMIN 3.3 G/DL (3.2-5.2); ALKALINE PHOSPHATASE 134 U/L (46-116); ALT/SGPT 24 U/L (7.0-40); AST/SGOT 18 U/L (<34); BILIRUBIN,TOTAL 0.4 MG/DL (0.3-1.2); BLOOD UREA NITROGEN 35 MG/DL (9-23); CALCIUM LEVEL 8.9 MG/DL (8.3-10.6); CARBON DIOXIDE LEVEL 25 MMOL/L (20-31); CHLORIDE LEVEL 107 MMOL/L (98-107); CREATININE FOR GFR 0.68 MG/DL (0.55-1.30); GLOMERULAR FILTRATION RATE > 60.0 (>45); GLUCOSE, FASTING 121 MG/DL (74-106); POTASSIUM SERUM 3.9 MMOL/L (3.5-5.1); SODIUM LEVEL 142 MMOL/L (136-145); TOTAL PROTEIN 5.9 G/DL (5.7-8.2)
[2023-12-08] MEDS: NS 1,000 ML IV SCH (09:03)
[2023-12-08] MEDS: PANTOPRAZOLE SODIUM 40 MG in D5W 50 ML IV SCH (09:30)
[2023-12-08] MEDS ORDERED: NAPR-885 PO (09:56)
[2023-12-08] MEDS ORDERED: HOME MED LIST COMPLETE! XX SCH (10:00)
[2023-12-08 10:25] VITALS: BP 153/75; TEMP 98.2; O2SAT 96
[2023-12-08 10:36] LABS: HEMATOCRIT 35.9 % (36.0-47.0); HEMOGLOBIN 11.8 g/dl (12.0-15.5); MEAN CORPUSCULAR HEMOGLOBIN 28.9 pg (27.0-33.0); MEAN CORPUSCULAR HGB CONC 32.9 g/dl (32.0-36.5); MEAN CORPUSCULAR VOLUME 87.8 fl (80.0-96.0); PLATELET COUNT, AUTOMATED 244 10^3/uL (150-450); RED BLOOD COUNT 4.09 10^6/uL (4.00-5.40); WHITE BLOOD COUNT 10.2 10^3/uL (4.0-10.0)
[2023-12-08] MEDS ORDERED: PANTOPRAZOLE 40MG VIAL IV SCH (11:25)
[2023-12-08] MEDS ORDERED: ACETAMINOPHEN TAB 650MG DOSE (2X325MG) PO PRN (11:25)
[2023-12-08] MEDS: LEVOTHYROXINE 88MCG TABLET (0.088 MG) PO SCH (12:10)
[2023-12-08 14:00] VITALS: BP 141/74; TEMP 97.7; O2SAT 98
[2023-12-08] MEDS: VENLAFAXINE **XR** 37.5 MG CAPSULE PO SCH (20:59)
[2023-12-08 21:23] VITALS: BP 144/77; TEMP 98.2; O2SAT 99
[2023-12-09 02:15] VITALS: BP 122/69; TEMP 98.2; O2SAT 98
[2023-12-09 05:36] VITALS: BP 146/77; TEMP 98.2; O2SAT 97
[2023-12-09 06:30] LABS: HEMATOCRIT 31.4 % (36.0-47.0); HEMOGLOBIN 10.5 g/dl (12.0-15.5); MEAN CORPUSCULAR HEMOGLOBIN 28.8 pg (27.0-33.0); MEAN CORPUSCULAR HGB CONC 33.4 g/dl (32.0-36.5); MEAN CORPUSCULAR VOLUME 86.3 fl (80.0-96.0); PLATELET COUNT, AUTOMATED 215 10^3/uL (150-450); RED BLOOD COUNT 3.64 10^6/uL (4.00-5.40); WHITE BLOOD COUNT 5.4 10^3/uL (4.0-10.0)
[2023-12-09 06:42] LABS: INR 1.03; PROTHROMBIN TIME 13.2 SECONDS (12.5-14.5)
[2023-12-09 07:05] LABS: ALKALINE PHOSPHATASE 120 U/L (46-116); ALT/SGPT 23 U/L (7.0-40); AST/SGOT 18 U/L (<34); BILIRUBIN,TOTAL 0.5 MG/DL (0.3-1.2); BLOOD UREA NITROGEN 27 MG/DL (9-23); CALCIUM LEVEL 8.7 MG/DL (8.3-10.6); CARBON DIOXIDE LEVEL 25 MMOL/L (20-31); CHLORIDE LEVEL 109 MMOL/L (98-107); CREATININE FOR GFR 0.71 MG/DL (0.55-1.30); GLOMERULAR FILTRATION RATE > 60.0 (>45); GLUCOSE, FASTING 99 MG/DL (74-106); POTASSIUM SERUM 3.6 MMOL/L (3.5-5.1); SODIUM LEVEL 143 MMOL/L (136-145); TOTAL PROTEIN 5.5 G/DL (5.7-8.2)
[2023-12-09 10:00] VITALS: BP 143/77; TEMP 97.9; O2SAT 98
[2023-12-09] MEDS ORDERED: propofoL 200 MG/20 ML VIAL As Ordered ONE (15:09)
[2023-12-09] MEDS ORDERED: fentaNYL 100 MCG/2 ML INJECTION As Ordered ONE (15:09)
[2023-12-09] MEDS ORDERED: LIDOCAINE 2% 100MG/5ML SDV (FOR ANES.) As Ordered ONE (15:09)
[2023-12-09] MEDS: EPINEPHrine 1MG/10ML SYRINGE 1.5IN As Ordered ONE (15:16)
[2023-12-09 16:15] VITALS: BP 140/76; TEMP 98; O2SAT 96
[2023-12-09] MEDS: PANTOPRAZOLE 40MG TAB (PROTONIX) PO SCH (20:43)
[2023-12-09 20:52] VITALS: BP 138/77; TEMP 98.2; O2SAT 96
[2023-12-10] VITALS: BP 130/78; TEMP 98; O2SAT 97
[2023-12-10 06:07] VITALS: BP 125/73; TEMP 97.7; O2SAT 98
[2023-12-10 06:44] LABS: INR 1.16; PROTHROMBIN TIME 14.4 SECONDS (12.5-14.5)
[2023-12-10 08:04] VITALS: BP 140/72
[2023-12-10 08:43] LABS: BASO % 0.7 % (0.0-1.0); EOS # 0.1 10^3/uL (0.0-0.5); EOS % 1.6 % (0.0-3.0); HEMATOCRIT 27.5 % (36.0-47.0); HEMOGLOBIN 9.4 g/dl (12.0-15.5); LYMPH # 1.2 10^3/uL (1.5-5.0); LYMPH % 20.9 % (24.0-44.0); MEAN CORPUSCULAR HEMOGLOBIN 29.8 pg (27.0-33.0); MEAN CORPUSCULAR HGB CONC 34.2 g/dl (32.0-36.5); MEAN CORPUSCULAR VOLUME 87.3 fl (80.0-96.0); MONO # 0.5 10^3/uL (0.0-0.8); MONO % 8.5 % (2.0-8.0); NEUTROPHILS # 3.8 10^3/uL (1.5-8.5); NEUTROPHILS % 67.1 % (36.0-66.0); PLATELET COUNT, AUTOMATED 180 10^3/uL (150-450); RED BLOOD COUNT 3.15 10^6/uL (4.00-5.40); WHITE BLOOD COUNT 5.7 10^3/uL (4.0-10.0)
[2023-12-10 09:04] LABS: ALBUMIN 2.9 G/DL (3.2-5.2); ALKALINE PHOSPHATASE 110 U/L (46-116); ALT/SGPT 15 U/L (7.0-40); AST/SGOT 15 U/L (<34); BILIRUBIN,TOTAL 0.5 MG/DL (0.3-1.2); BLOOD UREA NITROGEN 14 MG/DL (9-23); CARBON DIOXIDE LEVEL 25 MMOL/L (20-31); CHLORIDE LEVEL 110 MMOL/L (98-107); CREATININE FOR GFR 0.66 MG/DL (0.55-1.30); GLOMERULAR FILTRATION RATE > 60.0 (>45); GLUCOSE, FASTING 96 MG/DL (74-106); MAGNESIUM LEVEL 1.7 MG/DL (1.8-2.4); POTASSIUM SERUM 3.3 MMOL/L (3.5-5.1); SODIUM LEVEL 144 MMOL/L (136-145); TOTAL PROTEIN 5.1 G/DL (5.7-8.2)
[2023-12-10 10:00] VITALS: BP 124/75; TEMP 98.2; O2SAT 98
[2023-12-10] MEDS: POTASSIUM CHLORIDE 10MEQ SR TABLET PO SCH (10:11)
[2023-12-10] MEDS: MAG SULF 1GM/100ML (MAG RUN) 1 GM in IV 1 EA IV ONE (10:11)
[2023-12-10] MEDS ORDERED: PANT40TA29 PO (11:15)
== END 2023-12-10 13:12 | disposition home or self-care (01) | DRG 379 ==
LOC: M ED 06:34 → M ED INP 09:04 → M MSPAV 10:25
PROVIDERS: ADMIT Hospitalist; ATTEND Hospitalist
PROC: 0W3P8ZZ Control Bleeding in Gastrointestinal Tract, Via Natural or Artificial Opening Endoscopic (ICD-10-PCS; principal; 2023-12-09 08:30)
DX: K28.4 Chronic or unspecified gastrojejunal ulcer with hemorrhage (principal); I10 Essential (primary) hypertension; E03.9 Hypothyroidism, unspecified; F41.9 Anxiety disorder, unspecified; K44.9 Diaphragmatic hernia without obstruction or gangrene; E66.9 Obesity, unspecified; M19.90 Unspecified osteoarthritis, unspecified site; Z98.84 Bariatric surgery status; Z87.891 Personal history of nicotine dependence; Z79.890 Hormone replacement therapy; Z79.899 Other long term (current) drug therapy; Z88.8 Allergy status to other drugs, medicaments and biological substances; Z91.048 Other nonmedicinal substance allergy status; Z79.1 Long term (current) use of non-steroidal anti-inflammatories (NSAID); Z68.32 Body mass index [BMI] 32.0-32.9, adult

== ENCOUNTER → 2024-05-07 | Outpatient (CLI) | payer MEDICARE, BC ==
[~2024-05-07] MED LIST changes: +LOTE5DRO9 OU; +PANT40TA29 PO; +VENL37.598 PO; +XIID5DRO OU
[2024-05-07 15:08] LABS: HEMATOCRIT 30.7 % (36.0-47.0); HEMOGLOBIN 9.6 g/dl (12.0-15.5); MEAN CORPUSCULAR HGB CONC 31.3 g/dl (32.0-36.5); MEAN CORPUSCULAR VOLUME 76.8 fl (80.0-96.0); PLATELET COUNT, AUTOMATED 268 10^3/uL (150-450); WHITE BLOOD COUNT 5.1 10^3/uL (4.0-10.0)
== END ==
LOC: M PLALAB 12:48
PROVIDERS: ATTEND Surgery
DX: K28.0 Acute gastrojejunal ulcer with hemorrhage (principal)

== ENCOUNTER → 2024-05-17 | Outpatient (CLI) | payer MEDICARE, BC ==
[~2024-05-17] MED LIST changes: +CREO3600 PO
[2024-05-17 10:49] LABS: FREE T4 1.34 NG/DL (0.89-1.76)
[2024-05-17 10:50] LABS: FERRITIN 6.2 NG/ML (7.3-270.7); THYROID STIMULATING HORMONE 1.127 uIU/ML (0.55-4.78)
[2024-05-17 10:51] LABS: PERCENT SATURATION 6.6 % (13.2-45.0)
[2024-05-17 10:52] LABS: FOLATE 15.8 NG/ML (>5.4)
[2024-05-17 10:55] LABS: FREE T3 3.6 PG/ML (2.3-4.2)
[2024-05-20 15:18] LABS: HOMOCYST(E)INE SERUM 9.3 umol/L (<10.4)
== END ==
LOC: M WUC 08:29
PROVIDERS: ATTEND Family Medicine
DX: D51.0 Vitamin B12 deficiency anemia due to intrinsic factor deficiency (principal); E03.9 Hypothyroidism, unspecified

== ENCOUNTER 2024-05-21 07:29 | Day surgery (SDC) | payer MEDICARE, BC ==
[~2024-05-21] VITALS: Ht 162.6 cm; Wt 87.5 kg
[~2024-05-21 07:29] MED LIST changes: -CREO3600 PO; +LIDOCAINE 2% 100MG/5ML SDV (FOR ANES.) As Ordered ONE; +ONDANSETRON 4MG 2ML VIAL As Ordered ONE; +fentaNYL 100 MCG/2 ML INJECTION As Ordered ONE; +propofoL 200 MG/20 ML VIAL As Ordered ONE
[2024-05-21] MEDS: NS 250 ML IV ONE (07:38)
[2024-05-21] MEDS ORDERED: CREO3600 PO (07:45)
[2024-05-21 08:29] VITALS: TEMP 97.2
[2024-05-21 08:48] VITALS: BP 112/62; O2SAT 98
== END 2024-05-21 08:53 | disposition home or self-care (01) ==
LOC: M OPP 07:29
PROVIDERS: ATTEND Surgery
DX: K28.3 Acute gastrojejunal ulcer without hemorrhage or perforation (principal); K44.9 Diaphragmatic hernia without obstruction or gangrene; Z98.84 Bariatric surgery status; I10 Essential (primary) hypertension; E03.9 Hypothyroidism, unspecified; R12 Heartburn; M19.90 Unspecified osteoarthritis, unspecified site; F41.9 Anxiety disorder, unspecified; F32.A Depression, unspecified; G47.33 Obstructive sleep apnea (adult) (pediatric); Z99.89 Dependence on other enabling machines and devices; Z88.1 Allergy status to other antibiotic agents; Z88.5 Allergy status to narcotic agent; Z91.048 Other nonmedicinal substance allergy status; Z79.890 Hormone replacement therapy; Z79.899 Other long term (current) drug therapy
CPT/HCPCS: 43235; J2405; J3010

== ENCOUNTER → 2024-05-24 | Outpatient (REF) | payer MEDICARE, OTHER ==
[~2024-05-24] MED LIST changes: +CREO3600 PO; -LIDOCAINE 2% 100MG/5ML SDV (FOR ANES.) As Ordered ONE; -ONDANSETRON 4MG 2ML VIAL As Ordered ONE; -fentaNYL 100 MCG/2 ML INJECTION As Ordered ONE; -propofoL 200 MG/20 ML VIAL As Ordered ONE
== END ==
LOC: M SFHCDERM 15:26
PROVIDERS: ATTEND Physician Assistant
DX: D23.39 Other benign neoplasm of skin of other parts of face (principal)

== ENCOUNTER → 2024-06-19 | Outpatient (CLI) | payer MEDICARE, OTHER, BC ==
[2024-06-19 12:37] LABS: BASO # 0.1 10^3/uL (0.0-0.2); EOS # 0.1 10^3/uL (0.0-0.5); EOS % 1.7 % (0.0-3.0); HEMATOCRIT 32.7 % (36.0-47.0); HEMOGLOBIN 10.4 g/dl (12.0-15.5); LYMPH # 1.5 10^3/uL (1.5-5.0); LYMPH % 24.9 % (24.0-44.0); MEAN CORPUSCULAR HEMOGLOBIN 24.9 pg (27.0-33.0); MEAN CORPUSCULAR HGB CONC 31.8 g/dl (32.0-36.5); MEAN CORPUSCULAR VOLUME 78.2 fl (80.0-96.0); MONO # 0.6 10^3/uL (0.0-0.8); MONO % 9.6 % (2.0-8.0); NEUTROPHILS # 3.6 10^3/uL (1.5-8.5); NEUTROPHILS % 61.9 % (36.0-66.0); PLATELET COUNT, AUTOMATED 285 10^3/uL (150-450); RED BLOOD COUNT 4.18 10^6/uL (4.00-5.40); WHITE BLOOD COUNT 5.8 10^3/uL (4.0-10.0)
[2024-06-19 12:59] LABS: FERRITIN 5.9 NG/ML (7.3-270.7)
== END ==
LOC: M WUC 09:45
PROVIDERS: ATTEND Family Medicine
DX: D64.9 Anemia, unspecified (principal)

== ENCOUNTER → 2024-09-17 | Outpatient (REF) | payer MEDICARE, OTHER, BC ==
[2024-09-17 18:01] LABS: BASO # 0.1 10^3/uL (0.0-0.2); BASO % 0.8 % (0.0-1.0); EOS # 0.1 10^3/uL (0.0-0.5); HEMATOCRIT 37.4 % (36.0-47.0); HEMOGLOBIN 11.5 g/dl (12.0-15.5); LYMPH # 1.4 10^3/uL (1.5-5.0); LYMPH % 22.1 % (24.0-44.0); MEAN CORPUSCULAR HEMOGLOBIN 25.1 pg (27.0-33.0); MEAN CORPUSCULAR HGB CONC 30.7 g/dl (32.0-36.5); MEAN CORPUSCULAR VOLUME 81.7 fl (80.0-96.0); MONO # 0.6 10^3/uL (0.0-0.8); MONO % 8.7 % (2.0-8.0); NEUTROPHILS # 4.3 10^3/uL (1.5-8.5); NEUTROPHILS % 65.5 % (36.0-66.0); PLATELET COUNT, AUTOMATED 292 10^3/uL (150-450); RED BLOOD COUNT 4.58 10^6/uL (4.00-5.40); WHITE BLOOD COUNT 6.5 10^3/uL (4.0-10.0)
[2024-09-17 18:23] LABS: PERCENT SATURATION 69.8 % (13.2-45.0)
[2024-09-17 18:25] LABS: FERRITIN 10.4 NG/ML (7.3-270.7)
== END ==
LOC: M LABWUC 16:24
PROVIDERS: ATTEND Family Medicine
DX: D64.9 Anemia, unspecified (principal)